=== PATIENT | male | born 1975 | race Hispanic/Latino ===

== ENCOUNTER 2016-04-04 10:08 | Emergency (ER) | payer OTHER ==
[2016-04-04] MEDS ORDERED: HYDROcodone/Acetaminophen 10/325 mg Tablet ONE (10:19)
[2016-04-04] MEDS ORDERED: Ibuprofen 800 MG TAB ONE (10:19)
[2016-04-04] MEDS ORDERED: Adacel (T-DAP) 0.5 ML VIAL ONE (10:38)
--- NOTE | 2016-04-04 19:24 | RAD ---
LEFT HAND THREE VIEWS 04/04/16 No fracture was seen. The fourth digit appears intact. IMPRESSION: No acute finding. POS: HOME
== END 2016-04-04 10:53 | disposition home or self-care (01) ==
LOC: BURERS 10:08
DX: S60.042A Contusion of left ring finger without damage to nail, initial encounter (principal); E78.5 Hyperlipidemia, unspecified; E78.00 Pure hypercholesterolemia, unspecified; I10 Essential (primary) hypertension; W31.1XXA Contact with metalworking machines, initial encounter; Y99.0 Civilian activity done for income or pay; Z79.899 Other long term (current) drug therapy
CPT/HCPCS: 90471; 90715